=== PATIENT | male | born 1970 | race Caucasian/White ===

== ENCOUNTER 2020-04-20 17:35 | Emergency (ER) | payer OTHER, SELFPAY ==
--- NOTE | ~2020-04-20 | XR_ITS ---
XR chest 1V portable DATE: 04/20/2020 18:57 INDICATION: Shortness of breath. Known Covid infection. History of hypertension. TECHNIQUE: Portable AP chest on 04/20/2020 at 1814 hours COMPARISON: 06/18/2019 chest 06/18/2019 CT pulmonary scan FINDINGS: There is patchy infiltrate and/atelectasis in both lower lung zones. Heart size appears normal. No hilar or mediastinal enlargement is evident. No pulmonary vascular christine estion or pleural effusion or pneumothorax is detected. IMPRESSION: Patchy bilateral lower lung infiltrate and/or infiltrate Reviewed, dictated and finalized at location A.
--- NOTE | 2020-04-20 17:44 | ECG_ITS ---
Measurements Intervals [place] Rate: 91 P: 33 [place]: 165 QRS: 23 QRSD: 98 T: 50 QT: 328 QTc: 404 Interpretive Statements SINUS RHYTHM NORMAL ECG Electronically Signed On 04-21-2020 7:06:31 CDT by Dejon Mckenzie D.O.
[2020-04-20 17:49] VITALS: PULSE 84; O2SAT 97
--- NOTE | 2020-04-20 17:50 | ED.SOB ---
HPI - SOB/Dyspnea General Chief Complaint: Shortness of Breath/Dyspnea Stated Complaint: positive covid/cp Time Seen by Provider: 04/20/20 17:48 History of Present Illness HPI Narrative: Intermittent chest pain throughout the day today. Unable to give description. Made worse by stress. He thinks maybe he is a little short of breath. He might have a little fever. He syas that he was recently hospitalized for this same pain and his work-up was negative. He was diagnosed with COVID-19 last week. Related Data Home Medications Medication Instructions Recorded Confirmed omeprazole 20 mg tablet,delayed 20 mg PO DAILY 08/05/19 04/23/20 release atorvastatin 20 mg PO DAILY 04/20/20 04/23/20 oxybutynin chloride 5 mg PO QAM 04/22/20 04/23/20 Adult Low Dose Aspirin 81 mg PO DAILY 04/23/20 04/23/20 Allergies Allergy/AdvReac Type Severity Reaction Status Date / Time No Known Allergies Allergy Verified 03/23/20 10:58 Review of Systems Review of Systems: All systems reviewed & are unremarkable except as noted in HPI and below Constitutional: Constitutional: Reports fever(s) ENT: Denies sore throat Cardiovascular: Cardiovascular: Reports chest pain Respiratory: Respiratory: Reports chest congestion, Reports cough and Reports dyspnea Gastrointestinal: Gastrointestinal: Denies abdominal pain, Denies nausea and Denies vomiting Musculoskeletal: Musculoskeletal: Reports back pain Neurologic: Denies dizziness and Denies weakness [facility] Past Medical History Medical History (Updated 04/23/20 @ 21:48 by Felicita Ashley PA-C) Abnormal stress test Scheduled for cardiac catheterization in mid-April 2020. Anxiety and depression Essential hypertension Hepatic steatosis History of diverticulitis Hyperlipidemia Low testosterone in male Obesity, Class III, BMI 40-49.9 (morbid obesity) Obstructive sleep apnea with CPAP of 16. Pancreatitis Type 2 diabetes mellitus Hemoglobin A1c in January 2020 was 7.4%. Surgical History Surgical History (Updated 04/23/20 @ 21:44 by Felicita Ashley PA-C) History of arthroscopy of both knees History of carpal tunnel surgery of right wrist History of left knee replacement (~2014) Previous back surgery Status post right rotator cuff repair (~07/2007) Open anterior acromioplasty with distal clavicle excision and repair of right rotator cuff. Family History Family History Father Hypertension Social History Social History (Updated 04/23/20 @ 21:44 by Felicita Ashley PA-C) Social History: The patient lives in [place] with his of 21 years. His 21-year-old daughter also lives with them. 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 He is a lifelong nonsmoker. He does have a history of excessive alcohol use with up to 30 alcoholic beverages a week. He states that he has not drank any alcohol for the last 3-4 weeks. He designates his as his surrogate decision maker and he wishes to be a full code. His primary care provider is Dr. Jarad Spann. Spiritual care concerns: No Exam Const: General: no acute distress and alert Nutritional Appearance: obese Orientation/consciousness: patient oriented x3 HENMT: Head: normal to inspection Resp: Effort & Inspection: normal respiratory effort Auscultation: clear to auscultation bilaterally Cardio: Rate: regular rate Rhythm: regular rhythm Skin: General skin exam: normal color Neuro: General: patient oriented x3, moves all extremities and CN's II-XI intact bilaterally Speech: normal speech Course Vital Signs Vital signs: Vital Signs Pulse Rate 84 04/20/20 17:49 Pulse Oximetry 97 04/20/20 17:49 Temperature 36.6 C 04/20/20 17:56 Pulse Rate 97 04/20/20 20:56 Respiratory Rate 19 04/20/20 20:56 Blood Pressure 150/83 H 04/20/20 20:56 Pulse Oximetry 97 04/20/20 20:56 MDM - SOB/Dyspnea MDM Narrative Medical
[2020-04-20 17:56] VITALS: BP 159/89; PULSE 87; RESP 18; TEMP 36.6; O2SAT 97
[2020-04-20 18:00] LABS: Basophils Percent Auto 0.5 % (0.2-1.2); Eosinophils Percent Auto 0.5 % (0-4.4); Hematocrit 49.9 % (42.0-52.0); Hemoglobin 16.9 g/dL (14.0-18.0); Immature Granulocyte Absolute 0.02 K/mm3 (0.00-0.031); Immature Granulocyte Percent A 0.3 % (0-0.5); Lymphocytes Absolute Auto 1.68 K/mm3 (0.9-3.2); Lymphocytes Percent Auto 27.5 % (18.3-44.2); Mean Corpuscular HGB Conc 33.9 g/dl (32-36); Mean Corpuscular Volume 88.6 fl (80-100); Mean Platelet Volume 11.3 fl (7.4-10.4); Monocytes Absolute Auto 0.7 K/mm3 (0.1-0.6); Neutrophils Absolute Auto 3.7 K/mm3 (1.3-6.7); Neutrophils Percent Auto 60.2 % (45.5-73.1); Platelet Count Result 154 k/mm3 (150-375); Red Blood Count 5.63 M/mm3 (4.6-6.20); Red Cell Distribution Width 14.2 % (11.5-14.5); White Blood Count 6.1 K/mm3 (4.5-10.0)
[2020-04-20 18:11] LABS: Anion Gap 10 mmol/L (8-16); Blood Urea Nitrogen 15 mg/dL (9-20); Calcium 8.9 mg/dL (8.4-10.2); Carbon Dioxide 28 mmol/L (22-30); Chloride 98 mmol/L (98-107); Estimated CRCL calculation 115 ml/min; Estimated Glomerular Filt Rate > 60; Glucose 113 mg/dL (75-110); Sodium 136 mmol/L (137-145)
[2020-04-20 18:41] VITALS: BP 152/85; PULSE 93; RESP 24; O2SAT 98
--- NOTE | 2020-04-20 19:05 | PC.NURSE ---
PT REPORT TO JB KAM AT THIS TIME, HE HAS ASSUMED PT CARE.
[2020-04-20 19:19] LABS: Prothrombin Time 12.7 Seconds (11.1-14.7)
[2020-04-20 19:20] LABS: Partial Thromboplastin Time 29.4 SECONDS (22.3-36.8)
[2020-04-20 19:47] LABS: Troponin I < 0.012 ng/mL (0.000-0.034)
[2020-04-20 20:56] VITALS: BP 150/83; PULSE 97; RESP 19; O2SAT 97
== END 2020-04-20 21:00 | disposition home or self-care (01) ==
PROVIDERS: Emergency Medicine; Emergency Provider Emergency Medicine; PCP Internal Medicine
DX: G47.33 Obstructive sleep apnea (adult) (pediatric) (principal); E11.9 Type 2 diabetes mellitus without complications; G25.81 Restless legs syndrome
CPT/HCPCS: 36415; 71045; 80048; 84484; 85025; 85610; 85730; 93005; 99284

== ENCOUNTER 2020-04-22 12:30 | Observation (INO) | payer OTHER, SELFPAY ==
[2020-04-22] VITALS (7 sets, daily range): BP systolic 133–158; BP diastolic 60–100; PULSE 81–99; RESP 18–26; TEMP 37.2–39.2; O2SAT 96–100; BMI 42.0
--- NOTE | ~2020-04-22 | CT_ITS ---
EXAMINATION: CTA chest PE protocol DATE: 04/22/2020 15:23 INDICATION: Shortness of breath and fever. COVID-19 positive. TECHNIQUE: Computed tomography angiography (CTA) of the chest was performed with 100 mL Omnipaque-350 intravenous contrast timed to evaluate the pulmonary arteries. Coronal maximum intensity projection 3D-reconstructions were created by the technologist. Automated exposure control and iterative reconst ruction technique were employed. The dose-length product was 1115.69 mGy-cm. COMPARISON: Chest CT 05/22/2019 FINDINGS: There are patchy groundglass opacities involving all lobes with a lower lung predominance. No pleural effusion. The heart size is normal. There are coronary artery calcifications. No pericardi al effusion. There is no pulmonary embolus. There is mild bilateral hilar lymphadenopathy. Calcified mediastinal lymph nodes are consistent with old granulomatous disease. There is diffuse hepatic steat osis. There are bridging endplate osteophytes at multiple levels in the spine, consistent with diffus e idiopathic skeletal hyperostosis (DISH). There is chronic anterior wedging of T5-T8 vertebral edwin s. IMPRESSION: 1. No pulmonary embolus. 2. Diffuse lung disease, consistent with COVID-19 pneumonia. 3. Mild bilateral hilar lymphadenopathy, likely reactive. Reviewed, dictated and finalized at location A.
--- NOTE | ~2020-04-22 | XR_ITS ---
EXAMINATION: XR chest 1V portable DATE: 04/22/2020 13:43 INDICATION: Shortness of breath. Cough. COVID-19 positive. TECHNIQUE: A single frontal view of the chest was obtained. COMPARISON: Chest single view 04/20/2020, chest CT 06/18/2019 FINDINGS: There are patchy airspace opacities in the lower lung zones. No pleural effusion or pneumot horax. The heart size is normal. Calcified left hilar and mediastinal lymph nodes are consistent with old granulomatous disease. IMPRESSION: 1. Stable patchy airspace opacities in the lower lung zones, consistent with pneumonia. Reviewed, dictated and finalized at location A. IMPRESSION: 1. Stable patchy airspace opacities in the lower lung zones, consistent with pn eumonia.
--- NOTE | 2020-04-22 12:40 | ECG_ITS ---
Measurements Intervals [place] Rate: 88 P: 27 [place]: 157 QRS: 43 QRSD: 105 T: 26 QT: 351 QTc: 425 Interpretive Statements SINUS RHYTHM DELAYED PRECORDIAL R/S TRANSITION BASELINE ARTIFACT- II, III, AVF, V1-V2 BORDERLINE ECG Electronically Signed On 04-22-2020 13:04:20 CDT by Dejon Mckenzie D.O.
--- NOTE | 2020-04-22 13:01 | ED.SOB ---
HPI - SOB/Dyspnea General Chief Complaint: Shortness of Breath/Dyspnea Stated Complaint: sob/covid Time Seen by Provider: 04/22/20 12:50 Source: patient Mode of arrival: ambulatory Limitations: no limitations History of Present Illness HPI Narrative: 50 years old white male presents with increased shortness of breath and fever for the last few days. Patient is COVID-19 + April 15, came to our emergency room 2 days ago for the same symptoms. Patient called his family physician today for the above symptoms and was told to go to the emergency room immediately. MD elicited complaint: shortness of breath, cough and pain with inspiration Related Data Home Medications Medication Instructions Recorded Confirmed omeprazole 20 mg tablet,delayed 20 mg PO DAILY 08/05/19 04/22/20 release atorvastatin 20 mg PO DAILY 04/20/20 04/22/20 oxybutynin chloride 5 mg PO QAM 04/22/20 04/22/20 Allergies Allergy/AdvReac Type Severity Reaction Status Date / Time No Known Allergies Allergy Verified 03/23/20 10:58 Review of Systems Review of Systems: Narrative: CONSTITUTIONAL: Denies fever, chills, or sweats. EYES: Denies visual changes, redness, or discharge. ENT: Denies rhinorrhea, congestion, sore throat, or otalgia. CARDIOVASCULAR: Denies chest pain, palpitations, or edema. RESPIRATORY: Cough and shortness of breath GASTROINTESTINAL: Denies abdominal pain, nausea, vomiting, or diarrhea. GENITOURINARY: Denies dysuria or hematuria. SKIN: Denies rash or itching. MUSCULOSKELETAL: Denies back pain, joint pain, or myalgia. NEUROLOGIC: Denies headache, numbness, or weakness. PSYCHIATRIC: Denies anxiety or depression. [facility] Past Medical History Medical History Hypogonadism Obstructive sleep apnea RLS (restless legs syndrome) Type 2 diabetes mellitus Surgical History Surgical History H/O shoulder surgery H/O wrist surgery History of total knee arthroplasty Previous back surgery Family History Family History Father Hypertension Social History Social History Smoking status: Never smoker Alcohol intake: current Gender identity (if verbalized by the patient): Male Exam Narrative: Exam Narrative: General appearance: Well-developed, well-nourished Skin: Normal color Head: Normocephalic, nontraumatic Eyes: Clear conjunctiva ENT: Oropharynx normal, ears normal, nose normal Neck: Supple, nontender Chest and respiratory: Airway patent, no respiratory distress, no accessory muscle use, few scattered rales at the bases bilaterally, no wheezing or rhonchi Heart: Regular rate/rhythm Abdomen: Soft, nontender, no organomegaly, quiet bowel sounds Vascular: Normal peripheral pulses, normal capillary refill. Musculoskeletal: Normal range of motion, nontender back Neurologic: Alert and oriented ?3, CONDOMINIUM MANAGER is normal as tested, no gross motor deficit Course Course Emergency Course: STABLE Vital Signs Vital signs: Vital Signs Pulse Rate 83 04/22/20 12:58 Pulse Rate 83 04/22/20 12:58 MDM - SOB/Dyspnea MDM Narrative Medical decision making narrative: 12 pneumonia is my concern. Labs, chest x-ray, d-dimer, ABG on room air, CTA pulmonary ordered. Further plan to follow. Blood work-up showed elevated CRP, ABG on room air showed normal AA gradient, normal oxygen saturation, respiratory alkalosis. Chest x-ray and CT scan of the chest showed pneumonia. Patient is obese, history of diabetes, hypertension and obstructive sleep apnea, second visit to [facility]
[2020-04-22 13:14] LABS: Alveolar/Arterial O2 Gradient 19.5 mmHg; Base Excess ABG -0.1 mEq/l (+/-2.0); Fractional Inspired Oxygen 21 %; HCO3 ABG 22.6 mEq/l (22.0-26.0); Oxygen Content ABG 22.4 %vol (16.0-22.0); Oxygen Saturation ABG 97.5 % (95.0-100.0); Oxyhemoglobin 96.4 % THb (90.0-100.0); PCO2 ABG 31.9 mmHg (35.0-45.0); PO2 FiO2 Ratio Arterial Blood 4.38 %; Total Hemoglobin 16.5 g/dL (12.0-18.0); pH ABG 7.468 (7.350-7.450)
[2020-04-22 13:15] LABS: Device ROOM AIR; Modified Allen's Test Pass; Site Drawn RIGHT RADIAL
[2020-04-22 13:26] LABS: Basophils Percent Auto 0.3 % (0.2-1.2); Eosinophils Percent Auto 0.3 % (0-4.4); Hematocrit 47.9 % (42.0-52.0); Hemoglobin 16.5 g/dL (14.0-18.0); Immature Granulocyte Absolute 0.03 K/mm3 (0.00-0.031); Immature Granulocyte Percent A 0.5 % (0-0.5); Lymphocytes Absolute Auto 0.93 K/mm3 (0.9-3.2); Lymphocytes Percent Auto 14.8 % (18.3-44.2); Mean Corpuscular HGB Conc 34.4 g/dl (32-36); Mean Corpuscular Hemoglobin 29.9 pg (26-34); Mean Corpuscular Volume 86.9 fl (80-100); Mean Platelet Volume 11.9 fl (7.4-10.4); Monocytes Absolute Auto 0.5 K/mm3 (0.1-0.6); Monocytes Percent Auto 7.5 % (2.6-8.5); Neutrophils Absolute Auto 4.8 K/mm3 (1.3-6.7); Neutrophils Percent Auto 76.6 % (45.5-73.1); Platelet Count Result 140 k/mm3 (150-375); Red Blood Count 5.51 M/mm3 (4.6-6.20); Red Cell Distribution Width 14.3 % (11.5-14.5); White Blood Count 6.3 K/mm3 (4.5-10.0)
[2020-04-22 13:35] LABS: Prothrombin Time 13.1 Seconds (11.1-14.7)
[2020-04-22 13:36] LABS: Partial Thromboplastin Time 27.7 SECONDS (22.3-36.8)
[2020-04-22 14:18] LABS: Add Urine Microscopic? YES; Appearance Urine Clear (Clear); Bacteria Urine Trace /hpf; Bilirubin Urine Negative (Negative); Blood Urine Negative (Negative); Color Urine Yellow (Yellow); Glucose Urine UA Negative (Negative); Ketones Urine Negative (Negative); Leukocyte Esterase Ur Negative LEU/UL (Negative); Mucus Urine Rare /lpf; Nitrate Urine Negative (Negative); Protein Urine 2+ mg/dL (Negative); Specific Grav Ur 1.017 (1.001-1.035); Squamous Epithelial Cell Urine Occasional /hpf (Few); Urobilinogen Urine Negative mg/dL (<2.0); WBC Urine 0-3 /hpf
[2020-04-22 14:49] LABS: Lactic Acid Reflex 1.6 mmol/L (0.7-2.1)
[2020-04-22 14:50] LABS: Alanine Aminotransferase 52 U/L (4-50); Alkaline Phosphatase 67 U/L (38-126); Anion Gap 8 mmol/L (8-16); Aspartate Amino Transferase 38 U/L (17-59); Bilirubin,Total 0.6 mg/dL (0.2-1.3); Blood Urea Nitrogen 12 mg/dL (9-20); CRP 8.9 mg/dL (<1.0); Calcium 8.7 mg/dL (8.4-10.2); Carbon Dioxide 26 mmol/L (22-30); Chloride 102 mmol/L (98-107); Estimated CRCL calculation 128 ml/min; Estimated Glomerular Filt Rate > 60; Glucose 151 mg/dL (75-110); Potassium 3.9 mmol/L (3.4-5.0); Sodium 136 mmol/L (137-145)
[2020-04-22 15:36] LABS: D Dimer 0.59 ug/mL (<0.48)
[2020-04-22] MEDS: ACETAMINOPHEN 325 MG TABLET 650 MG PO ×2 (16:12→21:30)
--- NOTE | 2020-04-22 17:38 | PM.CNPUL ---
Assessment and Plan Assessment and plan (1) Pneumonia due to COVID-19 virus: Code(s): U07.1 - COVID-19; J12.89 - Other viral pneumonia Status: Acute Assessment and Plan: COVID pneumonia with increased shortness of breath, fevers, cough, weakness; (+) with patchy infiltrates both lungs, however no need for supplemental O2 at this point. Without an O2 requirement, he does not qualify for dexamethasone or remdesivir. Platelets are low 140 k, CRP 8.9, normal WBC. He has ANNABEL and is not adequately treated with current CPAP 16 cm as he is falling asleep all day long. He has potential to worsen. Initial COVID test was Apr 16. Shortness of breath is the main symptoms of concern with his COVID and recent (+) nuclear stress test concerning for ischemia. He is at increased risk for clotting throughout his body. He had chest pain 2 days ago, also in ER. He may get worse before he gets better. This infection can last for weeks if not longer. (2) Shortness of Breath: Code(s): R06.02 - Shortness of breath Status: Acute Assessment and Plan: See above. This is his main complaint and the reason for admission. He has had CTA and does not have pulmonary emboli, one of the dreaded complications on COVID. (3) Obstructive sleep apnea: Code(s): G47.33 - Obstructive sleep apnea (adult) (pediatric) Status: Acute Assessment and Plan: reports using CPAP 16 cm with poor control of symptoms; excessive daytime sleepiness, fatigue, snores, wakes feeling nonrefreshed. Started treatment 2 years ago with some improvement but overall disappointing response. Has plans to see pulmonary doctor Jayme Ballard MD in [place]. No use of CPAP with active COVID infection due to risk of dispersion of viral particles in the hospital setting. (4) Obesity, Class III, BMI 40-49.9 (morbid obesity): Code(s): E66.01 - Morbid (severe) obesity due to excess calories Status: Acute Assessment and Plan: is 42, increasing risk for increased mortality due to COVID. He also has risk factors including diabetes and hypertension. states loss of 23 lb in the last 2-3 weeks with poor appetite, however wt is stable from Mar 24 doctor visit. (5) Type 2 diabetes mellitus without complication, without long-term current use of insulin: Code(s): E11.9 - Type 2 diabetes mellitus without complications Status: Acute Assessment and Plan: stopped oral diabetic meds on admission; glimepiride 2 mg 3 tablets daily and metformin a 1000 mg b.i.d. HBA1c 7.4 on February 17, 2020 (6) Hypertension: Qualifiers: Hypertension type: essential hypertension Qualified Code(s): I10 - Essential (primary) hypertension Code(s): I10 - Essential (primary) hypertension Status: Acute Assessment and Plan: on antihypertensive medications at home, will continue here; BP is running high and these will continue (7) Restless legs syndrome: Code(s): G25.81 - Restless legs syndrome Status: Acute Assessment and Plan: on pramipexole (8) Thrombocytopenia: Code(s): D69.6 - Thrombocytopenia, unspecified Status: Acute Assessment and Plan: platelet count is a 140 k, mildly decreased, was in the normal range 2 days ago 154 k. This is likely due to concurrent infection. History of Present I
--- NOTE | 2020-04-22 18:00 | PC.NURSE ---
This patient, Julian Posadas Jr., was admitted to [facility] Surg Room 328-01. Patient/family oriented to hospital policies and general routines including ID bracelet, bed and alarms, visiting hours, pain management, procedures, bathroom and other care routines, personal items, smoking policy, room service/diet, and visiting hours. Valuables list has been completed. Information on how to activate the Rapid Response Team has been discussed. Patient/Family are encouraged to report perceived risks to care and to ask questions if they do not understand what they are told or what they should do.
--- NOTE | 2020-04-22 20:11 | PC.NURSE ---
Pt wanting to leave against medical advice. Pt states no one brought him water for 2 hours and states the doctor was only in the room 15 minutes. Pt pulled his IV out. Pt was brought water, soda, and ice cream. Dr. Zheng called to room and talked to him. Pt decided to stay after he calmed down.
[2020-04-22] MEDS: NAPROXEN 500 MG TABLET PO (21:30)
[2020-04-22] MEDS: PRAMIPEXOLE 1 MG TABLET 3 MG PO (21:30)
--- NOTE | 2020-04-22 23:47 | PM.IMHP ---
H&P: HPI History of Present Illness Date/Time: 04/22/20 23:47 Chief complaint: shortness of breath and fever, COVID-19 positive Narrative: Julian Posadas Jr. is a 50 year old male with a past medical history of obstructive sleep apnea, hypertension, diabetes mellitus and coronary artery disease who presented to the ER with waxing and waning fevers and shortness of breath. The patient tested positive for COVID-19 04/15/2020.The patient reported that he started having symptoms of a dry cough about 14 days ago. He then started having a fever about 11 days ago. For the most part is temperatures have been in the low 100s. His fevers usually occur between 4:00 p.m. and midnight. He had a loss of sense of taste over the last 2 weeks. He denies any change in his sensation of smell. He has had significant drop in his appetite. He felt as if he had lost about 23 lb in the last several weeks. But review of patient's records from his outpatient visit demonstrates the patient's weight has been stable. He had been having some nasal congestion but this has since resolved. He started having loose stools about 4 days ago. He denies any hematochezia or melena. He came into the ER because he was having increased shortness of breath and persistent cough. He was also concerned that his fever had been lasting for as long as it has. In the ER the patient's oxygen saturations were between 97 and 100% his PO2 on his ABG was normal at 92. He denies any nausea or vomiting. He does have a history of a abnormal stress test April 01, 2020. The patient had been evaluated at an outside hospital for chest pain in late February. He had an EKG and serial troponins which were negative. he was discharged with nitroglycerin which did not seem to help with his pain. He followed up with his primary care physician Dr. Spann who ordered a stress test given the patient's multiple comorbidities. His stress test was abnormal and the patient was referred cardiology for cardiac catheterization. However prior to home arranging the cardiac catheterization the patient developed COVID-19. Since the stress test he has had 2 episodes of chest pain. The 1st episode occurred on April 20, 2020. He had a troponin performed at that time when he came to the ER which was negative. His EKG at that time demonstrated normal sinus rhythm. He had another episode of chest pain on the 2nd but this episode occurred after coughing. In hindsight, he thinks that the chest pain that occurred on the 1st may also have been due to coughing. He denies having any chest pain today. His EKG did a demonstrated normal sinus rhythm with delayed precordial are just transition and baseline artifact 2 , 3, AVF, V1 and V2. He is scheduled to have an outpatient Cardiac catheterization in the middle of April with Dr. Fuller. the patient was started on atorvastatin and 81 mg aspirin daily when he was evaluated by Cardiology April 07, 2000 . However the 81 mg aspirin is not listed on the patient's home med rec. He does have a history of obstructive sleep apnea and reports that his CPAP has not really been helping with his symptoms. He has had excessive daytime sleepiness, fatigue despite adequate amount of sleep, and snoring. He is already set up to see a spare hand carding in [place] for further evaluation of his obstructive sleep apnea. The patient does have type 2 diabetes mellitus. Even though he has metformin 1000 mg listed on his med rec he states that he usually takes a 1000 mg tablet in breaks it in half and takes 1/2 in the morning and 1/2 in the evening. He reports he was having diarrhea when he would take 1000 mg twice a day. His last hemoglobin A1c was 7.4 in January. At that time his glimepiride was increased to 3 mg a day from 2 mg. the patient does have baseline dyspnea on exertion. He reports that he is under increased stress currently because his was recently diagnosed with endobronchial cancer.
[2020-04-23] VITALS: BP 105/48; PULSE 84; RESP 20; TEMP 37.3; O2SAT 95
[2020-04-23 04:00] VITALS: BP 120/53; PULSE 61; RESP 20; TEMP 36.4; O2SAT 96
[2020-04-23 05:56] LABS: Hematocrit 45.4 % (42.0-52.0); Hemoglobin 15.5 g/dL (14.0-18.0); Mean Corpuscular HGB Conc 34.1 g/dl (32-36); Mean Corpuscular Hemoglobin 30.2 pg (26-34); Mean Corpuscular Volume 88.5 fl (80-100); Mean Platelet Volume 11.7 fl (7.4-10.4); Platelet Count Result 149 k/mm3 (150-375); Red Blood Count 5.13 M/mm3 (4.6-6.20); Red Cell Distribution Width 14.1 % (11.5-14.5)
[2020-04-23 06:27] LABS: Alanine Aminotransferase 47 U/L (4-50); Albumin Level 3.6 g/dL (3.5-5.1); Alkaline Phosphatase 58 U/L (38-126); Anion Gap 9 mmol/L (8-16); Aspartate Amino Transferase 33 U/L (17-59); Bilirubin,Total 0.7 mg/dL (0.2-1.3); Blood Urea Nitrogen 15 mg/dL (9-20); Calcium 8.2 mg/dL (8.4-10.2); Carbon Dioxide 24 mmol/L (22-30); Chloride 102 mmol/L (98-107); Estimated CRCL calculation 125 ml/min; Estimated Glomerular Filt Rate > 60; Glucose 112 mg/dL (75-110); Lactate Dehydrogenase 623 U/L (313-618); Potassium 3.3 mmol/L (3.4-5.0); Sodium 135 mmol/L (137-145)
[2020-04-23 06:33] LABS: CRP 13.7 mg/dL (<1.0)
[2020-04-23 08:00] VITALS: BP 133/88; PULSE 74; RESP 18; TEMP 36.9; O2SAT 97
[2020-04-23] MEDS: ENOXAPARIN 40 MG/0.4 ML SYRINGE SUB-Q (08:06)
[2020-04-23] MEDS: ASPIRIN 81 MG ENTERIC TABLET PO (08:06)
[2020-04-23] MEDS: ESCITALOPRAM OXALATE 10 MG TABLET PO (08:07)
[2020-04-23] MEDS: metFORMIN HCL 500 MG TABLET PO (08:07)
[2020-04-23] MEDS: ATORVASTATIN 20 MG TABLET PO (08:07)
[2020-04-23] MEDS: OXYBUTYNIN CHLORIDE 5 MG TABLET PO (08:07)
[2020-04-23] MEDS: valACYclovir HCL 500 MG TABLET 1000 MG PO (08:07)
[2020-04-23] MEDS: LOSARTAN POTASSIUM 100 MG TABLET PO (08:08)
[2020-04-23] MEDS: PANTOPRAZOLE 40 MG TABLET PO (08:08)
[2020-04-23 08:23] LABS: Glucose Point of Care 106 (65-105)
[2020-04-23] MEDS: POTASSIUM CHLORIDE 20 MEQ TABLET 40 MEQ PO (09:58)
[2020-04-23] MEDS: IBUPROFEN 400 MG TABLET PO (10:45)
--- NOTE | 2020-04-23 10:46 | PM.DS ---
DS: Admitting Diagnosis Admitting Diagnosis Admitting Diagnosis: shortness of breath and fever, COVID-19 positive DS: Discharge Diagnosis Discharge Diagnosis (1) Pneumonia due to COVID-19 virus: Code(s): U07.1 - COVID-19; J12.89 - Other viral pneumonia Status: Acute Assessment and Plan: -----tested positive 04/15/20 but had symptoms a week before that. Patient did not require any oxygen during his stay. He has a continued cough but no shortness of breath unless he is really exerting himself. He was instructed by pulse oximeter and to monitor his oxygen outpatient if he feels short of breath. It is less than 90% he should come back into the emergency room. The patient is greater than 10 days out from symptom onset is not a candidate for remdesivir. (2) Abnormal stress test: Code(s): R94.39 - Abnormal result of other cardiovascular function study Status: Acute Assessment and Plan: -----plans for cardiac catheterization later this month once he recovers from COVID. He understands that he should not do any vigorous activity and come back to emergency room with any chest pain. (3) Alcohol drinking problem: Code(s): Z72.89 - Other problems related to lifestyle Status: Acute Assessment and Plan: ------ The patient reports that he drinks socially. However as of his hospital stay in September 2018 he actually admitted drinking up to 30 beers a day. He states that he still drinks quite generously when he does drink. However he has not had any alcohol consumption in the last 3 weeks due to his illness. No signs of alcohol withdrawal (4) Obstructive sleep apnea: Code(s): G47.33 - Obstructive sleep apnea (adult) (pediatric) Status: Acute Assessment and Plan: -----unable to use CPAP while at the hospital since he is not a negative pressure room. (5) Type 2 diabetes mellitus: Code(s): E11.9 - Type 2 diabetes mellitus without complications Status: Acute Assessment and Plan: -----last glucose 112. Continue home regimen DS: Summary Hospital Course Reason for hospitalization: COVID-19 Hospital Course: Patient is a 50-year-old male who presented emergency room for continued fever and shortness of breath who was COVID-19 positive 04/15/2020 who had symptoms a week before his testing. Patient states he continues to feel weak and short of breath and continues to have cough. He has some dyspnea on exertion and occasional chest pain. He had a positive stress test last month and plans of cardiac catheterization later this month after he recovers from COVID-19. He was admitted to the hospitalist service and observed overnight. He had no complaints of shortness of breath or chest pain during this time. He had an occasional dyspnea on exertion that he says is unchanged. He mentioned earlier in the stay he had some pain in his chest muscles when he touched them and when he coughed to but that is better. He is having some dyspnea on exertion when he walks to the bathroom but no chest pain with this. we discussed, and he agreed, that he needs to call 911 if he has any type of chest pain and do not delay this. Patient was discharged in stable condition Status at Discharge Functional status at discharge: independent ambulation Overall status at discharge: patient is progressing back to baseline Time Spent with Patient Time attestation: Total time spent providing and/or coordinating discharge services:32 min Time spent: Greater than 30 minutes Exam Narrative: Exam Narrative: General: Overweight patient resting comfortably in bed in no acute distress Neuro: Alert and oriented x4 HEENT: Normocephalic, neck supple CV: Regular rate and rhythm no obvious murmurs Resp: CTA Abd: Soft, non-distended. No palpable pain in all four quadrants. Positive bowel sounds. Extremities: no erythema or swelling of the lower extremities pysch: Calm
== END 2020-04-23 11:18 | disposition home or self-care (01) ==
LOC: ANHED 16:14 → ANH3MEDSUR 16:42
PROVIDERS: Emergency Medicine Emergency Medical Services; Internal Medicine; Physician Assistant; Admitting Provider Internal Medicine; Emergency Provider Emergency Medicine; PCP Internal Medicine; Visit Provider Family Medicine
DX: U07.1 COVID-19 (principal); J12.89 Other viral pneumonia; R94.39 Abnormal result of other cardiovascular function study; R07.9 Chest pain, unspecified; E11.9 Type 2 diabetes mellitus without complications; G47.33 Obstructive sleep apnea (adult) (pediatric); G25.81 Restless legs syndrome; D69.6 Thrombocytopenia, unspecified; I10 Essential (primary) hypertension; E78.5 Hyperlipidemia, unspecified; Z79.84 Long term (current) use of oral hypoglycemic drugs; Z72.89 Other problems related to lifestyle; Z23 Encounter for immunization
CPT/HCPCS: 36415; 36600; 71045; 71275; 80053; 81001; 82728; 82805; 83605; 83615; 85025; 85027; 85380; 85610; 85730; 86140; 87040; 87077; 87186; 90471; 90686; 93005; 96372; 99285; A9270; G0008; G0378; J1650; Q9967

== ENCOUNTER 2020-04-23 16:13 | Inpatient (IN) | payer OTHER, SELFPAY ==
[2020-04-23 16:10] VITALS: BP 137/69; PULSE 98; RESP 22; TEMP 36.7; O2SAT 94
[2020-04-23 16:25] VITALS: BMI 41.8
[2020-04-23 20:00] VITALS: PULSE 74
--- NOTE | 2020-04-23 20:00 | PM.IMHP ---
H&P: HPI History of Present Illness Date/Time: 04/23/20 20:00 Chief complaint: Positive blood culture Narrative: Julian Posadas Jr. is a 50 year old male with obstructive sleep apnea, hypertension, type 2 diabetes mellitus, and recent abnormal stress test who is being directly admitted for further treatment and evaluation of a positive blood culture drawn yesterday in the emergency department. The weekend of April 10, he was out mowing his 30 acre property, and shortly thereafter developed sinus congestion and dry cough. He assumed that his symptoms were due to allergies, however he began having fevers on SundayApril 13. Ultimately he tested positive for COVID-19 on April 15, and has had waxing and waning fevers since that time. His fevers typically the worst between approximately 16:00 and 23:00 each evening, which he tries to keep at bay with acetaminophen and ibuprofen. He was seen in the emergency department on April 20 with chest pain and shortness of breath, and he was able to be discharged after a reportedly unremarkable workup. He goes on to say that he was evaluated at an outside hospital for chest pain in late February, and serial troponins and EKG were reportedly unremarkable. A stress test was ordered thereafter by his primary care provider, and that was abnormal in fact he was referred to cardiology for cardiac catheterization. That has since been delayed due to the positive COVID-19. In any event, he was seen once again in the emergency department yesterday due to continued fevers, shortness of breath, loose stools, poor appetite, and a 23 lb weight loss. He was admitted to the hospital overnight, and remained stable and was able to be discharged home this morning. Not long after returning home, he received a phone call that 1 of the a robotic blood culture bottles came back positive for gram-positive cocci in clusters and he is thus being directly admitted for further treatment and evaluation. At the time my evaluation, he points out that he has not had a high fever this evening, and he is hopeful that this is a sign that he is getting better. He continues to have a dry cough, decreased sense of taste and smell, decreased appetite, and loose stools. He had some mild anterior chest discomfort earlier, but he believes that perhaps it is due to his coughing. He denies current headache and neck ache. No sore throat. No palpitations or racing heart. He denies dysuria and change in urine output. No wounds or lesions. Review of Systems Review of Systems: Narrative: Twelve systems were reviewed with pertinent positives and negatives as per HPI. He has been having headaches with the COVID. No lightheadedness or dizziness. He does report generalized malaise and fatigue. He goes on to say that he has not been sleeping well for quite some time, and despite being compliant with his CPAP he has daytime somnolence and apparently has nodded off several times sitting in his office chair at work. His last hemoglobin A1c was 7.4, and he recently had an increase in his glimepiride dose. He has been having a lot of problems with arthritic pain in his right knee, but he is unable to have that fixed until he loses some weight. He also reports an increase in stress recently as his was diagnosed with endobronchial carcinoma and is scheduled to undergo surgery in the near future. No history of alcohol withdrawal signs or symptoms. Has occasional pamela ankle edema, mainly at the end of the day, which improves by morning. Except as documented, all other systems were reviewed and are negative. [facility] Past Medical History Medical History (Updated 04/23/20 @ 21:48 by Felicita Ashley PA-C) Abnormal stress test Scheduled for cardiac catheterization in mid-April 2020. Anxiety and depression Essential hypertension Hepatic steatosis History of diverticulitis Hyperlipidemia Low testosterone in male Obesity, Class III, BMI 40-49.9 (morbid o
[2020-04-23 20:17] LABS: Basophils Percent Auto 0.4 % (0.2-1.2); Eosinophils Absolute Auto 0.1 K/mm3 (0-0.3); Eosinophils Percent Auto 1.6 % (0-4.4); Hematocrit 48.2 % (42.0-52.0); Hemoglobin 16.2 g/dL (14.0-18.0); Immature Granulocyte Absolute 0.03 K/mm3 (0.00-0.031); Immature Granulocyte Percent A 0.5 % (0-0.5); Lymphocytes Absolute Auto 1.28 K/mm3 (0.9-3.2); Lymphocytes Percent Auto 23.2 % (18.3-44.2); Mean Corpuscular HGB Conc 33.6 g/dl (32-36); Mean Corpuscular Hemoglobin 29.7 pg (26-34); Mean Corpuscular Volume 88.3 fl (80-100); Mean Platelet Volume 11.2 fl (7.4-10.4); Monocytes Absolute Auto 0.7 K/mm3 (0.1-0.6); Monocytes Percent Auto 12.2 % (2.6-8.5); Neutrophils Absolute Auto 3.4 K/mm3 (1.3-6.7); Neutrophils Percent Auto 62.1 % (45.5-73.1); Platelet Count Result 173 k/mm3 (150-375); Red Blood Count 5.46 M/mm3 (4.6-6.20); White Blood Count 5.5 K/mm3 (4.5-10.0)
[2020-04-23 20:36] LABS: Alanine Aminotransferase 50 U/L (4-50); Alkaline Phosphatase 64 U/L (38-126); Anion Gap 9 mmol/L (8-16); Aspartate Amino Transferase 31 U/L (17-59); Bilirubin,Total 0.6 mg/dL (0.2-1.3); Blood Urea Nitrogen 13 mg/dL (9-20); Carbon Dioxide 27 mmol/L (22-30); Chloride 101 mmol/L (98-107); Estimated CRCL calculation 113 ml/min; Estimated Glomerular Filt Rate > 60; Glucose 123 mg/dL (75-110); Lactate Dehydrogenase 639 U/L (313-618); Potassium 4.2 mmol/L (3.4-5.0); Sodium 137 mmol/L (137-145)
[2020-04-23 20:47] LABS: CRP 13.6 mg/dL (<1.0)
[2020-04-23 20:50] VITALS: BP 137/89; PULSE 73; RESP 24; TEMP 37.3; O2SAT 97
[2020-04-23 23:27] LABS: Glucose Point of Care 117 (65-105)
[2020-04-23 23:45] VITALS: BP 144/83; PULSE 71; RESP 20; TEMP 36.9; O2SAT 98
[2020-04-24] VITALS (9 sets, daily range): BP systolic 141–156; BP diastolic 79–90; PULSE 64–84; RESP 16–20; TEMP 36.2–37; O2SAT 96–97
[2020-04-24 06:20] LABS: Basophils Percent Auto 0.6 % (0.2-1.2); Eosinophils Absolute Auto 0.1 K/mm3 (0-0.3); Eosinophils Percent Auto 2.1 % (0-4.4); Hematocrit 45.5 % (42.0-52.0); Hemoglobin 15.6 g/dL (14.0-18.0); Immature Granulocyte Absolute 0.03 K/mm3 (0.00-0.031); Immature Granulocyte Percent A 0.6 % (0-0.5); Lymphocytes Absolute Auto 1.34 K/mm3 (0.9-3.2); Lymphocytes Percent Auto 25.5 % (18.3-44.2); Mean Corpuscular HGB Conc 34.3 g/dl (32-36); Mean Corpuscular Hemoglobin 29.5 pg (26-34); Mean Corpuscular Volume 86.2 fl (80-100); Monocytes Absolute Auto 0.6 K/mm3 (0.1-0.6); Monocytes Percent Auto 11.6 % (2.6-8.5); Neutrophils Absolute Auto 3.1 K/mm3 (1.3-6.7); Neutrophils Percent Auto 59.6 % (45.5-73.1); Platelet Count Result 177 k/mm3 (150-375); Red Blood Count 5.28 M/mm3 (4.6-6.20); Red Cell Distribution Width 13.7 % (11.5-14.5); White Blood Count 5.3 K/mm3 (4.5-10.0)
[2020-04-24 06:39] LABS: Alanine Aminotransferase 52 U/L (4-50); Albumin Level 3.6 g/dL (3.5-5.1); Alkaline Phosphatase 60 U/L (38-126); Anion Gap 6 mmol/L (8-16); Aspartate Amino Transferase 36 U/L (17-59); Bilirubin,Total 0.6 mg/dL (0.2-1.3); Blood Urea Nitrogen 13 mg/dL (9-20); CRP 8.3 mg/dL (<1.0); Calcium 8.7 mg/dL (8.4-10.2); Carbon Dioxide 26 mmol/L (22-30); Chloride 104 mmol/L (98-107); Estimated CRCL calculation 125 ml/min; Estimated Glomerular Filt Rate > 60; Glucose 121 mg/dL (75-110); Lactate Dehydrogenase 630 U/L (313-618); Potassium 4.1 mmol/L (3.4-5.0); Sodium 136 mmol/L (137-145)
[2020-04-24 08:55] LABS: Glucose Point of Care 142 (65-105)
[2020-04-24] MEDS: ENOXAPARIN 40 MG/0.4 ML SYRINGE SUB-Q (09:17)
[2020-04-24 12:59] LABS: Glucose Point of Care 269 (65-105)
--- NOTE | 2020-04-24 13:19 | PM.IMPN ---
Progress Note: A&P Assessment and Plan (1) Positive blood culture: Code(s): R78.81 - Bacteremia Status: Acute Assessment and Plan: -----coag-negative staph in 1 blood culture likely contaminant. Will wait new blood cultures and discharge once those are negative. Continue vancomycin. Patient has been afebrile and his white blood cell count is normal. (2) Pneumonia due to COVID-19 virus: Code(s): U07.1 - COVID-19; J12.89 - Other viral pneumonia Status: Acute Assessment and Plan: -----fevers have resolved and he has not needed oxygen. Monitor (3) Type 2 diabetes mellitus: Code(s): E11.9 - Type 2 diabetes mellitus without complications Status: Acute Assessment and Plan: -----last glucose 269 but did not get his diabetes medications this morning. Will restart his home medications. Continue sliding scale insulin (4) Obstructive sleep apnea: Code(s): G47.33 - Obstructive sleep apnea (adult) (pediatric) Status: Acute Assessment and Plan: ------We do not have negative pressure rooms available for COVID patient's, and thus he cannot use his CPAP while hospitalized, unfortunately. Time Spent With Patient Time with patient: 25 - 35 minutes Subjective Date/time seen: 04/24/20 13:19 Interval history: Pt is a 50-year-old male recent history of COVID and positive blood cultures. Patient was seen today and feels fine. He has not had fever. His appetite is back. Pt denies nausea, vomiting, chills, constipation, diarrhea, chest pain, sob, or abdominal pain. He is not happy that he has to stay until his prelim blood cultures are back Review of Systems Review of Systems: All systems reviewed & are unremarkable except as noted in HPI and below Exam Narrative: Exam Narrative: General: Well developed well nourished patient in NAD HEENT: normocephalic Neck: supple Neuro: Alert and oriented x4 CV:RRR no abnormalities on telemetry Resp:CTA Abd: Soft, non distended. No pain to palpation. Positive bowel sounds Extremities: No swelling, erythema, or pain to palpation. Objective Data Vital Signs Vital Signs: Vital Signs - 24 hr 04/23/20 16:10 04/23/20 20:00 04/23/20 20:50 Temperature 98.1 F 99.1 F Pulse Rate 98 74 73 Respiratory Rate 22 H 24 H Blood Pressure 137/69 137/89 Pulse Oximetry 94 97 04/23/20 23:45 04/24/20 00:00 04/24/20 04:00 Temperature 98.4 F Pulse Rate 71 67 73 Respiratory Rate 20 Blood Pressure 144/83 H Pulse Oximetry 98 04/24/20 04:50 04/24/20 08:00 04/24/20 08:45 Temperature 98.6 F 98.0 F Pulse Rate 67 74 75 Respiratory Rate 16 20 Blood Pressure 143/90 H 145/82 H Pulse Oximetry 97 96 04/24/20 12:00 Temperature Pulse Rate 64 Respiratory Rate Blood Pressure Pulse Oximetry Intake/Output Intake/Output: Intake & Output 04/21/20 04/22/20 04/23/20 04/24/20 23:59 23:59 23:59 23:59 Intake Total 790 1430 Output Total 0 900 Balance 790 530 Meds/Results Medications: Active Medications Generic Name Dose Route Start Last Admin Trade Name Freq PRN Reason Stop Dose Admin Albuterol 2 puff 04/23/20 21:51 Proventil Hfa INHALATION QIDRT PRN Shortness Of Breath Atorvastatin Calcium 20 mg 04/25/20 09:00 Lipitor PO DAILY MARTINEZ Dextrose 12.5 gm 04/24/20 13:17 Dextrose 50% Syringe IV PUSH PRN PRN Hypoglycemia Protocol Enoxaparin Sodium 40 mg 04/24/20 09:00 04/24/20 09:17 Lovenox SUB-Q 40 mg DAILY MARTINEZ Administration Escitalopram Oxalate 10 mg 04/24/20 13:20 Lexapro PO DAILY MARTINEZ Glimepiride 3 mg 04/24/20 13:20 Amaryl PO QAM MARTINEZ Glucagon 1 mg 04/24/20 13:17 Glucagon For Inj IM PRN PRN Hypoglycemia Protocol Glucose 15 gm 04/24/20 13:17 Glutose 15 PO PRN PRN Hypoglycemia Protocol Vancomycin HCl 2,000 mg in 500 mls @ 250 mls/hr
[2020-04-24] MEDS: GLIMEPIRIDE 1 MG TABLET 3 MG PO (14:05)
[2020-04-24] MEDS: PANTOPRAZOLE 40 MG TABLET PO (14:05)
[2020-04-24] MEDS: valACYclovir HCL 500 MG TABLET 1000 MG PO (14:05)
[2020-04-24] MEDS: ASPIRIN 81 MG CHEWABLE TABLET PO (14:06)
[2020-04-24] MEDS: ESCITALOPRAM OXALATE 10 MG TABLET PO (14:06)
[2020-04-24] MEDS: LOSARTAN POTASSIUM 100 MG TABLET PO (14:06)
[2020-04-24] MEDS: OXYBUTYNIN CHLORIDE 5 MG TABLET PO (14:06)
[2020-04-24] MEDS: ATORVASTATIN 20 MG TABLET PO (14:06)
[2020-04-24] MEDS: metFORMIN HCL 500 MG TABLET PO (16:56)
[2020-04-24 17:09] LABS: Glucose Point of Care 69 (65-105)
[2020-04-24 18:39] LABS: Glucose Point of Care 112 (65-105)
[2020-04-24] MEDS: PRAMIPEXOLE 1 MG TABLET 3 MG PO (20:56)
[2020-04-24 21:21] LABS: Glucose Point of Care 110 (65-105)
[2020-04-25] VITALS: BP 142/77; PULSE 62; PULSE 65; RESP 18; TEMP 36.6; O2SAT 97
[2020-04-25 04:00] VITALS: BP 149/66; PULSE 52; PULSE 70; RESP 18; TEMP 37.2; O2SAT 95
--- NOTE | 2020-04-25 07:00 | PM.DS ---
DS: Admitting Diagnosis Admitting Diagnosis Admitting Diagnosis: Positive blood culture DS: Discharge Diagnosis Discharge Diagnosis (1) Positive blood culture: Code(s): R78.81 - Bacteremia Status: Acute Assessment and Plan: -----coag-negative staph in 1 blood culture from prior stay. Patient re-admitted and started on vancomycin. He no longer had any fevers, elevated white blood cell count, and felt much better. A 2nd set of blood cultures were drawn which are negative to date and will be monitored until finalized. I do suspect that the original blood culture is a contaminant. He is not going to be sent home on any antibiotics but was recommended to come back to the emergency room if he starts to have worsening fevers or feeling worse. He is to follow-up with his primary care physician in 1-2 weeks to ensure he is improving. (2) Pneumonia due to COVID-19 virus: Code(s): U07.1 - COVID-19; J12.89 - Other viral pneumonia Status: Acute Assessment and Plan: -----fevers have resolved and he has not needed oxygen. Monitor (3) Type 2 diabetes mellitus: Code(s): E11.9 - Type 2 diabetes mellitus without complications Status: Acute Assessment and Plan: -----last glucose 110. Discharged on home medications (4) Obstructive sleep apnea: Code(s): G47.33 - Obstructive sleep apnea (adult) (pediatric) Status: Acute Assessment and Plan: ------continue CPAP at home DS: Summary Hospital Course Reason for hospitalization: Bacteremia Hospital Course: Patient is a 50-year-old male who presented emergency room originally on 04/22 after testing positive for COVID-19 and continuing have significant fevers and weakness. Patient was hospitalized overnight and was discharged 04/23 as he was doing well. Later that day, a blood culture came back positive and his primary care physician suggested he be readmitted and started on antibiotics until it was identified. The patient was started on vancomycin as a precaution until his blood cultures were identified. He no longer had any fevers and felt much better. / blood cultures grew coag-negative staph consistent with contaminant. The patient's white blood cell count is normal, he is afebrile, and clinically he is feeling close to baseline. He has no rashes or wounds, his nausea vomiting have resolved, no identifiable murmur. I suspect this is a contaminant and the patient was just naturally improving since it is almost been 14 days since his COVID symptoms started. He is to follow-up with his primary care physician in 1-2 weeks. I will monitor the blood cultures until finalized. He is to come back to emergency room for any additional fevers, worsening clinical symptoms or any other worrisome symptom. He was discharged in stable condition Status at Discharge Functional status at discharge: independent ambulation Overall status at discharge: patient is back to baseline Time Spent with Patient Time attestation: Total time spent providing and/or coordinating discharge services:32 min Time spent: Greater than 30 minutes Exam Narrative: Exam Narrative: General: Well developed well nourished patient in NAD HEENT: normocephalic Neck: supple Neuro: Alert and oriented x4 CV:RRR no abnormalities on telemetry Resp:CTA Abd: Soft, non distended. No pain to palpation. Positive bowel sounds Extremities: No swelling, erythema, or pain to palpation. DS: Data Data Completed and Pending Labs on day of discharge: Labs from last 24 hours 04/24/20 04/24/20 04/24/20 21:04 18:18 16:57 WBC RBC Hgb Hct MCV MCH MCHC RDW Plt Count MPV Immature Gran % (Auto) Neut % (Auto) Lymph % (Auto) Andrew % (Auto) Eos % (Auto) Baso % (Auto) Lymph # (Auto) Andrew # (Auto) Eos # (Auto) Baso # (Auto) Abs Immat Gran (auto) Absolute Neuts (auto) Absolute
[2020-04-25 08:00] VITALS: PULSE 75
--- NOTE | 2020-04-29 13:57 | PC.NURSE ---
Blood cx are negative.
== END 2020-04-25 08:50 | disposition home or self-care (01) | DRG 177 ==
PROVIDERS: Physician Assistant; Admitting Provider Family Medicine; PCP Internal Medicine; Visit Provider Physician Assistant
DX: U07.1 COVID-19 (principal); J12.89 Other viral pneumonia; R78.81 Bacteremia; G47.33 Obstructive sleep apnea (adult) (pediatric); E11.9 Type 2 diabetes mellitus without complications
CPT/HCPCS: 36415; 36600; 71045; 71275; 80053; 81001; 82728; 82805; 83605; 83615; 85025; 85027; 85380; 85610; 85730; 86140; 87040; 87077; 87186; 90471; 90686; 93005; 96372; 99285; A9270; G0008; G0378; J1650; J3370; Q9967

== ENCOUNTER 2020-11-01 08:18 | Outpatient (CLI) | payer OTHER, SELFPAY | END 2020-11-01 08:19 | LOC: ANHCOVIDVC 08:18 | PROVIDERS: PCP Internal Medicine | DX: Z23 Encounter for immunization (principal) | CPT/HCPCS: 0001A; 91300 ==

== ENCOUNTER 2020-11-22 08:20 | Outpatient (CLI) | payer OTHER, SELFPAY | END 2020-11-22 08:21 | disposition home or self-care (01) | LOC: ANHCOVIDVC 08:20 | PROVIDERS: PCP Internal Medicine | DX: Z23 Encounter for immunization (principal) | CPT/HCPCS: 0002A; 91300 ==

== ENCOUNTER → 2022-04-25 10:09 | Outpatient (CLI) | payer OTHER, SELFPAY ==
--- NOTE | ~2022-04-25 | XR_ITS ---
EXAMINATION: XR lumbar spine 2-3V DATE: 04/25/2022 10:26 INDICATION: Chronic right-sided low back pain TECHNIQUE: Anteroposterior and lateral views of the lumbar spine, and cone-down lateral view of the l umbosacral junction were obtained. COMPARISON: None. FINDINGS: There are 2 mm of anterolisthesis of L3 on L4. There is moderate loss of intervertebral dis c space height at L4-L5 and L5-S1. The vertebral body heights are maintained. There is moderate facet osteoarthritis of the lower lumbar spine. Degenerative osteophytes project from the anterior endplat es of multiple vertebral bodies. IMPRESSION: 1. Moderate lumbar spondylosis without acute findings. Reviewed, dictated and finalized at location B.
== END ==
DX: M54.41 Lumbago with sciatica, right side (principal); G89.29 Other chronic pain; M47.26 Other spondylosis with radiculopathy, lumbar region
CPT/HCPCS: 72100

== ENCOUNTER 2023-03-06 08:42 | Outpatient (CLI) | payer OTHER, SELFPAY ==
--- NOTE | 2023-03-28 22:59 | WPDSLEEPSTUD ---
Sleep Study Date of Study: 03/06/23 Ordering Provider: Kg Corbin, MANAGER OF REGULATORY AFFAIRS Interpreting Physician: Nini Zheng MD Sleep Study Type: Multiple Sleep Latency Test Height: 1.83 m Weight: 143.335 kg Body Mass Index: 42.8 Neck Circumference (inches): 19.5 [place]: 19 Reason for Sleep Study Hypersomnolence * 03/29/2020 Home sleep test; AHI 38 with desaturation to 77%, 7 minutes and 41 seconds spent below 88% * He has been on CPAP 16 cm at home Sleep History Julian Posadas Jr is a 53-year-old male who is here for an overnight PSG using CPAP with a multiple sleep latency test to follow. The patient says that he always feels tired. He naps frequently. He has memory loss. His excessive sleepiness has been present for more than 2 years. feeling has been going on for longer than 2 years. He rarely awakens from sleep feeling short of breath. He does not awaken at night with heartburn, belching or coughing. He always snores loudly enough that others complain about it. He frequently has difficulty sleeping with a cold. He frequently wakes up gasping for breath at night. He frequently has breathing problems at night reported to me by others. He frequently sweats excessively at night and notices his heart pounding or beating irregularly at night. He always falls asleep during the day, always falls asleep involuntarily and he might fall asleep while driving. He rarely has loss of muscle tone with strong emotion. 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 He frequently feels paralyzed on waking or falling asleep. He rarely has vivid dreamlike scenes on waking or falling asleep. He does not feel afraid to go to sleep. He acute rarely has nightmares. He rarely remembers his dreams. He frequently has racing thoughts. He occasionally feels sad or depressed. He frequently has anxiety. He occasionally has muscular tension. He occasionally notices parts of his body jerking. He frequently kicks at night. He constantly has crawling and aching feelings in his legs. He frequently has leg pain at night. He occasionally has morning jaw pain. He frequently grinds his teeth during sleep. He constantly is bothered by pain during the day. He frequently is awakened by pain at night. He constantly wakes up feeling stiff in the morning. He frequently wakes with sore achy muscles. He always wakes up with pain in the neck and spine. Has fatigue, memory problems, concentration problems, sexual problems and insomnia. Normal bedtime is 930 to 10:30 p.m.. It takes him anywhere between 10 minutes and an hour and a half to fall asleep. He may wake between 2 to3 times during the night. These awakenings occur in the middle of the night. He may stay awake for up to 3 hours. He does not mention if he needs to urinate at night. He wakes the morning between 6:30 a.m. and 7:00 a.m.. On weekends, bedtime is later, between 11:00 p.m. and 12:00 p.m.. He wakes between 8:00 a.m. and 9:00 a.m. on weekends. He always takes naps in the afternoon or evening. Naps are never refreshing. He is always drowsy in the morning for 3 hours or later. He feels better in the evening compared to earlier in the day. He sleeps in a different bed from his bed partner. Habits: Never smoked tobacco. No caffeine. Alcohol socially. No recreational substances. [facility] Past Medical History Medical History Abnormal stress test Scheduled for cardiac catheterization in mid-April 2020. Anxiety and depression Essential hypertension Hepatic steatosis History of diverticulitis Hyperlipidemia Low testosterone in male Obesity, Class III, BMI 40-49.9 (morbid obesity) Obstructive sleep apnea with CPAP of 16. Osteoarthritis of right knee Pancreatitis Type 2 diabetes mellitus Hemoglobin A1c in January 2020 was 7.4%. Surgical History Surgical History (Reviewed 03/28/23 @ 23:21
--- NOTE | 2023-03-28 23:18 | WPDSLEEPSTUD ---
Sleep Study Date of Study: 03/06/23 Ordering Provider: Kg Corbin, FUNCTIONAL CONSULTANT Interpreting Physician: Cindi Corral DO Sleep Study Type: Multiple Sleep Latency Test Height: 1.83 m Weight: 143.335 kg Body Mass Index: 42.8 Neck Circumference (inches): 19.5 [place]: 19 Reason for Sleep Study Excessive daytime sleepiness Sleep History Please see sleep history on PSG report from the previous night. [facility] Past Medical History Medical History Abnormal stress test Scheduled for cardiac catheterization in mid-April 2020. Anxiety and depression Essential hypertension Hepatic steatosis History of diverticulitis Hyperlipidemia Low testosterone in male Obesity, Class III, BMI 40-49.9 (morbid obesity) Obstructive sleep apnea with CPAP of 16. Osteoarthritis of right knee Pancreatitis Type 2 diabetes mellitus Hemoglobin A1c in January 2020 was 7.4%. Surgical History Surgical History History of arthroscopy of both knees History of carpal tunnel surgery of right wrist History of left knee replacement (~2014) Previous back surgery Status post right rotator cuff repair (~07/2007) Open anterior acromioplasty with distal clavicle excision and repair of right rotator cuff. Family History Family History Father Hypertension Sibling CHF (congestive heart failure) Mother Rheumatoid arthritis Social History Social History Social History: The patient lives in [place] with his of 21 years. His 21-year-old daughter also lives with them. 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 He is a lifelong nonsmoker. He does have a history of excessive alcohol use with up to 30 alcoholic beverages a week. He states that he has not drank any alcohol for the last 3-4 weeks. He designates his as his surrogate decision maker and he wishes to be a full code. His primary care provider is Dr. Jarad Spann. Smoking status: Never smoker Alcohol intake: current Substance use: never Spiritual care concerns: No Medications Home Medications Medication Instructions Recorded Confirmed Type metformin 1,000 mg tablet 500 mg PO BID #180 tabs 07/07/21 01/10/22 Rx losartan 100 mg tablet See Rx Instructions .Route 12/28/21 01/10/22 Rx .COMPLEX #90 tabs amoxicillin 875 mg-potassium 1 tablet PO Q12H #20 tabs 01/05/22 01/10/22 Rx clavulanate 125 mg tablet pramipexole 1.5 mg tablet See Rx Instructions .Route 01/09/22 01/10/22 Rx .COMPLEX #180 tabs testosterone undecanoate 750 mg/3 750 mg (3 mL) IM Q10W #3 mL 02/06/22 Rx mL (250mg/mL) intramuscular solution (Aveed) glimepiride 2 mg tablet 3 mg PO QAM #135 tabs 04/10/22 Rx omeprazole 20 mg tablet,delayed 40 mg PO DAILY #120 tabs 07/21/22 Rx release valacyclovir 1 gram tablet 1,000 mg PO DAILY #90 tabs 08/22/22 Rx oxybutynin chloride 5 mg tablet See Rx Instructions .Route 11/29/22 Rx .COMPLEX #30 tabs Sleep Procedure The recording montage for the MSLT includes central EEG (C3-A2, C4-A1) and occipital (O1-A2, O2-A1) derivations, left and right eye electrooculograms (EOGs), mental/submental electromyogram (EMG), and electrocardiogram (EKG). Nap 1 commenced at 08:09 . Nap 1 was terminated at 08:25. Sleep latency was 0 minutes. Sleep onset REM did not occur. The patient said that sleep occurred. The patient did not report dreaming. Nap 2 commenced at 10:15. Nap 2 was terminated at 10:32. Sleep latency was 1 minute. Sleep onset REM did not occur. The patient said that sleep occurred. The patient did not report dreaming. Nap 3 commenced at 12:14. Nap 3 was terminated at 12:31. Sleep latency was 1.5 minutes. Sleep onset REM did not occur .The patient said that sleep occurred. The patient did not report dreaming. Nap 4
[2023-03-28 23:20] VITALS: BMI 42.8
[2023-03-28 23:36] VITALS: BMI 42.8
== END 2023-03-07 16:43 | disposition home or self-care (01) ==
PROVIDERS: Visit Provider Nurse Practitioner Family
DX: G47.33 Obstructive sleep apnea (adult) (pediatric) (principal); G47.10 Hypersomnia, unspecified; G47.61 Periodic limb movement disorder
CPT/HCPCS: 95805; 95810